=== PATIENT | female | born 1960 ===

== ENCOUNTER 2023-06-03 11:25 | Emergency (ER) | payer OTHER ==
[2023-06-03 12:45] VITALS: TEMP 98
--- NOTE | 2023-06-03 12:47 | ED ---
URI HPI - General Chief Complaint: Upper Respiratory Infection Stated Complaint: Chest Congestion Time Seen by Provider: 06/03/23 12:06 Source: patient, RN notes reviewed Mode of arrival: ambulatory Limitations: language barrier (Caser used) - History of Present Illness Initial Comments: 62-year-old female presents emergency Department with significant other for erosion of cough and cold like symptoms patient has been sick for several days. Patient states that she feels like she may have:. Patient states she had pneumonia in the past. Patient denies any sick contacts but she reports fevers chills bodyaches productive cough. - Related Data Allergies Allergy/AdvReac Type Severity Reaction Status Date / Time No Known Allergies Allergy Verified 06/03/23 11:55 Review of Systems ROS Statement: Those systems with pertinent positive or pertinent negative responses have been documented in the HPI. ROS Other: All systems not noted in ROS Statement are negative. Past Medical History Additional Past Medical History / Comment(s): STD History of Any Multi-Drug Resistant Organisms: None Reported Past Surgical History: No Surgical Hx Reported, Orthopedic Surgery, Uterine Ablation Additional Past Surgical History / Comment(s): throat surgery. Past Psychological History: No Psychological Hx Reported Smoking Status: Never smoker Past Alcohol Use History: None Reported Past Drug Use History: None Reported General Exam Limitations: no limitations General appearance: alert, in no apparent distress Head exam: Present: atraumatic, normocephalic, normal inspection Eye exam: Present: normal appearance, PERRL, EOMI. Absent: scleral icterus, conjunctival injection, periorbital swelling ENT exam: Present: normal exam, normal oropharynx, mucous membranes moist Neck exam: Present: normal inspection, full ROM. Absent: tenderness, meningismus, lymphadenopathy Respiratory exam: Present: normal lung sounds bilaterally. Absent: respiratory distress, wheezes, rales, rhonchi, stridor Cardiovascular Exam: Present: regular rate, normal rhythm, normal heart sounds. Absent: systolic murmur, diastolic murmur, rubs, gallop, clicks Neurological exam: Present: alert Course Vital Signs 06/03/23 11:52 Temperature 98 F Pulse Rate 95 Respiratory 18 Rate Blood Pressure 131/77 O2 Sat by Pulse 98 Oximetry Medical Decision Making - Medical Decision Making Was pt. sent in by a medical professional or institution (, PA, COPPERSMITH HELPER, urgent care, hospital, or [facility]...) When possible be specific @ -No Did you speak to anyone other than the patient for history (EMS, parent, family, police, friend...)? What history was obtained from this source @ -No Did you review nursing and triage notes (agree or disagree)? Why? @ -I reviewed and agree with nursing and triage notes Were old charts reviewed (outside hosp., previous admission, EMS record, old EKG, old radiological studies, urgent care reports/EKG's, [facility] records)? Report findings @ -No old charts were reviewed Differential Diagnosis (chest pain, altered mental status, abdominal pain women, abdominal pain men, vaginal bleeding, weakness, fever, dyspnea, syncope, headache, dizziness, GI bleed, back pain, seizure, CVA, palpatations, mental health, musculoskeletal)? @ -[COVID 19, RSV, influenza, pneumonia, acute bronchitis, URI, this list is not all inclusive EKG interpreted by me (3pts min.). @ -[None X-rays interpreted by me (1pt min.). @ -Chest x-ray shows no acute cardio pulmonary process CT interpreted by me (1pt min.). @ -None done U/S interpreted by me (1pt. min.). @ -None done What testing was considered but not performed or refused? (CT, X-rays, U/S, labs)? Why? @ -None What meds were considered but not given or refused? Why? @ -None Did you discuss the management of the patient with other professionals (professionals i.e. , PA, COPPERSMITH HELPER, lab, RT, psych nurse, socially responsible investment adviser, work station support specialist, teacher, risk control officer, telehealth case manager)? Give summary @ -No Was smoking cessation discussed for >3mins.? @ -No Was critical care preformed (if so, how long)? @ -No Were there social determinants of health that impacted care today? How? (Ho melessness, low income, unemployed, alcoholism, drug addiction, transportation, low edu. Level, literacy, decrease access to med. care, senior living, rehab)? @ -No Was there de-escalation of care discussed even if they declined (Discuss DNR or withdrawal of care, Hospice)? DNR status @ -No What co-morbidities impacted this encounter? (DM, HTN, Smoking, COPD, CAD, Cancer, CVA, ARF, Chemo, Hep., AIDS, mental health diagnosis, sleep apnea, morbid obesity)? @ -None Was patient admitted / discharged? Hospital course, mention meds given and route, prescriptions, significant lab abnormalities, going to OR and other pertinent info. @ -Discharge patient is positive for RSV patient is currently stable be discharged in stable condition. Undiagnosed new problem with uncertain prognosis? @ -No Drug Therapy requiring intensive monitoring for toxicity (Heparin, Nitro, Insulin, Cardizem)? @ -No Were any procedures done? @ -No Diagnosis/symptom? @ -RSV Acute, or Chronic, or Acute on Chronic? @ -Acute Uncomplicated (without systemic symptoms) or Complicated (systemic symptoms)? @ -[Uncomplicated Side effects of treatment? @ -No Exacerbation, Progression, or Severe Exacerbation? @ -No Poses a threat to life or bodily function? How? (Chest pain, [place], [place], pneumonia, PE, COPD, DKA, ARF, appy, cholecystitis, CVA, Diverticulitis, Homicidal, Suicidal, threat to staff... and all critical care pts) @ -No - Lab Data Lab Results 06/03/23 Range/Units 12:18 Influenza Type A (PCR) Not Detected (Not Detectd) Influenza Type B (PCR) Not Detected (Not Detectd) RSV (PCR) Detected A (Not Detectd) SARS-CoV-2 (PCR) Not Detected (Not Detectd) Disposition Clinical Impression: RSV infection Disposition: HOME SELF-CARE Condition: Stable Instructions (If sedation given, give patient instructions): Respiratory Syncytial Virus (ED) Additional Instructions: Please return to the Emergency Department if symptoms worsen or any other concerns. Is patient prescribed a controlled substance at d/c from ED?: No Referrals: Nonstaff,Physician [Primary Care Provider] - 1-2 days Time of Disposition: 13:58
--- NOTE | 2023-06-03 13:44 | XR ---
EXAMINATION TYPE: XR chest 2V DATE OF EXAM: 06/03/2023 1:24 PM CLINICAL INDICATION:Female, 62 years old with history of fever/cough COMPARISON: Chest radiographs from 06/03/2023 TECHNIQUE: XR chest 2V Frontal and lateral views of the chest. FINDINGS: Lungs/Pleura: There is no evidence of pleural effusion, focal consolidation, or pneumothorax. Pulmonary vascularity: Unremarkable. Heart/mediastinum: Cardiomediastinal silhouette is unremarkable. Musculoskeletal: No acute osseous pathology. Other findings: None IMPRESSION: No acute cardiopulmonary disease/process.
[2023-06-03 14:47] VITALS: BP 128/74; PULSE 88; RESP 20
== END 2023-06-03 14:32 | disposition home or self-care (01) ==
LOC: EC 11:25
DX: R05.9 Cough, unspecified (principal); R09.89 Other specified symptoms and signs involving the circulatory and respiratory systems; B97.4 Respiratory syncytial virus as the cause of diseases classified elsewhere; Z20.822 Contact with and (suspected) exposure to COVID-19
CPT/HCPCS: 71046; 87636; 99283

== ENCOUNTER 2025-01-05 10:15 | Observation (INO) | payer OTHER ==
[2025-01-05 11:02] LABS: Basophils # (A) 0.01 10*3/uL (0.00-0.10); Basophils % (A) 0.2 %; Eosinophils # (A) 0.01 10*3/uL (0.04-0.35); Eosinophils % (A) 0.2 %; HCT 36.9 % (37.2-46.3); HGB 13.0 g/dL (12.0-15.0); Lymphocytes # (A) 0.95 10*3/uL (0.90-5.00); Lymphocytes % (A) 23.5 %; MCH 30.3 pg (27.0-32.0); MCHC 35.2 g/dL (32.0-37.0); MCV 86.0 fL (80.0-97.0); Monocytes # (A) 0.25 10*3/uL (0.20-1.00); Monocytes % (A) 6.2 %; Neutrophils # (A) 2.82 10*3/uL (1.80-7.70); Neutrophils % (A) 69.7 %; Platelet Count 293 10*3/uL (140-440); RBC 4.29 10*6/uL (4.10-5.20); RDW 11.9 % (11.5-14.5); WBC 4.05 10*3/uL (4.50-10.00)
[2025-01-05] MEDS: LACTATED RINGERS 1,000 ML IV ONE (11:04)
[2025-01-05] MEDS: KETOROLAC 15 MG/ML 1 ML VIAL IVP STA (11:06)
[2025-01-05] MEDS: ONDANSETRON 4 MG/2 ML VIAL IVP STA (11:09)
[2025-01-05] MEDS: MORPHINE SULFATE 4 MG/ML SYRINGE IVP STA (11:11)
[2025-01-05 11:12] LABS: ALT 23 U/L (4-34); AST 26 U/L (14-36); African American GFR (CKD) >90 (>60 ml/min/1.73 sqM); Albumin 4.7 g/dL (3.5-5.0); Alkaline Phosphatase 114 U/L (38-126); Amylase 55 U/L (30-110); Anion Gap 12 mmol/L; Blood Urea Nitrogen 13 mg/dL (7-17); Calcium 9.7 mg/dL (8.4-10.2); Carbon Dioxide 25 mmol/L (22-30); Chloride 94 mmol/L (98-107); Glucose 132 mg/dL (74-99); Lipase 52 U/L (23-300); Non-African American GFR(CKD) >90 (>60 ml/min/1.73 sqM); Potassium 3.7 mmol/L (3.5-5.1); Sodium 131 mmol/L (137-145); Total Protein 7.8 g/dL (6.3-8.2)
[2025-01-05] MEDS: PANTOPRAZOLE 40 MG/10 ML VIAL IVP STA (11:14)
[2025-01-05 11:19] LABS: INR 1.1 (<1.2); Partial Thromboplastin Time 23.6 sec (22.0-30.0); Prothrombin Time 11.9 sec (10.0-12.5)
[2025-01-05 12:17] LABS: Bilirubin,Urine Negative (Negative); Blood,Urine Small (Negative); Color,Urine Colorless; Glucose,Urine (UA) Negative (Negative); Ketones,Urine 1+ (Negative); Leukocyte Esterase,Urine Negative (Negative); Nitrite,Urine Negative (Negative); PH, Urine 7.0 (5.0-8.0); Protein,Urine Negative (Negative); RBC,Urine 1 /hpf (0-5); Specific Gravity,Urine 1.013 (1.001-1.035); Urobilinogen,Urine <2.0 mg/dL (<2.0); WBC,Urine <1 /hpf (0-5)
--- NOTE | 2025-01-05 12:17 | CT ---
EXAMINATION TYPE: CT abdomen pelvis w con CT DLP: 722.7 mGycm, Automated exposure control for dose reduction was used. DATE OF EXAM: 01/05/2025 12:05 PM COMPARISON: None CLINICAL INDICATION:Female, 64 years old with history of abdominal pain, generalized; Generalized abd pain, nausea. TECHNIQUE: Standard CT of the abdomen and pelvis following the administration of 100 cc of Isovue 3 00 IV contrast material. Coronal and sagittal reformats were performed. FINDINGS: LOWER CHEST: Posterior minimal dependent subsegmental atelectasis is noted. Partial visualization of bilateral breast prosthesis. Mild cardiomegaly. ABDOMEN LIVER: Unremarkable GALLBLADDER AND BILE DUCTS: No biliary ductal dilatation. Cholelithiasis with a 2.7 cm calculus sugge sted. Gallbladder wall edema measuring up to 4 mm. PANCREAS: Unremarkable. SPLEEN: Unremarkable. ADRENAL GLANDS: Unremarkable. KIDNEYS AND URETERS: No evidence of hydronephrosis. No left renal calculi. The kidneys enhance symmet rically. Nonobstructing right renal 8mm calculus. Contrast is demonstrated within both collecting sys tems and proximal ureters on the delayed phase. PELVIS BLADDER: Unremarkable REPRODUCTIVE: The uterus is surgically absent. ABDOMEN & PELVIS STOMACH AND BOWEL: Small hiatal hernia, duodenum is unremarkable. Distal colonic diverticulosis witho ut evidence for acute diverticulitis. No focal bowel wall thickening or surrounding inflammatory watson ges. No evidence of bowel obstruction. The appendix is not identified however no significant inflamma tory changes within the right lower quadrant. PERITONEUM: No evidence of pneumoperitoneum or free fluid. VASCULATURE: Mild atherosclerotic calcifications are present throughout the abdominal aorta and its b ranches. No evidence of aortic aneurysm. Pelvic phleboliths. MUSCULOSKELETAL: No acute osseous abnormalities LYMPH NODES: No evidence for lymphadenopathy. SOFT TISSUE/ABDOMINAL WALL: Unremarkable IMPRESSION: 1. Cholelithiasis with gallbladder wall edema. Recommend further evaluation with ultrasound to evalu ate for acute cholecystitis. 2. Nonobstructing right renal calculus. 3. Colonic diverticulosis without evidence for acute diverticulitis. [facility], , 01/05/2025 12:15 PM
--- NOTE | 2025-01-05 12:58 | ED ---
General Adult HPI - General Chief complaint: Abdominal Pain Stated complaint: Abd pain Time Seen by Provider: 01/05/25 10:35 Source: patient, family, RN notes reviewed, old records reviewed Mode of arrival: ambulatory Limitations: no limitations - History of Present Illness Initial comments: 64-year-old female with past medical history remarkable for hysterectomy and appendectomy presents emergency department complaining of 4 to 5 days of wo rsening abdominal pain. She describes it is somewhat generalized but does point towards her epigastric region as well as right upper quadrant. Patient is a Swedish speaker and does not speak good Amharic. Zinc Chloride Operator phone used for evaluation. Initial nylon machine operator was Vivek, case #[id number]. Patient denies any chest pain or shortness of breath. Denies any fevers. Endorses nonbilious nonbloody emesis as well as some diarrhea. Denies any urinary complaints. Does have a history of IBS as well as colon polyps status post removal however it has been some years since she has had belly pain like this. She is uncertain what is causing the pain which is why she presents for further evaluation. - Related Data Allergies Allergy/AdvReac Type Severity Reaction Status Date / Time No Known Allergies Allergy Verified 06/03/23 11:55 Review of Systems ROS Statement: Those systems with pertinent positive or pertinent negative responses have been documented in the HPI. Review of Systems: CONST: Denies fever EYES: Denies blurry vision ENT: Denies nasal congestion C/V: Denies Chest pain RESP: Denies shortness of breath GI: Endorses abdominal pain : Denies dysuria SKIN: Denies rash. MSK: Denies joint pain. NEURO: Denies headache ROS Other: All systems not noted in ROS Statement are negative. Past Medical History Additional Past Medical History / Comment(s): STD History of Any Multi-Drug Resistant Organisms: None Reported Past Surgical History: No Surgical Hx Reported, Orthopedic Surgery, Uterine Ablation Additional Past Surgical History / Comment(s): throat surgery. Past Psychological History: No Psychological Hx Reported Smoking Status: Never smoker Past Alcohol Use History: None Reported Past Drug Use History: None Reported General Exam - General Exam Comments Initial Comments: General: Appears in mild to moderate distress secondary to abdominal pain. HEAD: Normal with no signs of head trauma. EYES: PERRLA, EOMI, conjunctiva normal, no discharge. ENT: Hearing grossly intact, normal oropharynx. RESPIRATORY: Clear breath sounds bilaterally. No wheezes, rales, or rhonchi. C/V: Regular rate and rhythm. S1 and S2 auscultated, no edema, peripheral pulses 2+ and intact throughout ABD: Abdomen soft, nondistended. Tender palpation epigastric region and right upper quadrant. Mild guarding. No rebound tenderness. No peritoneal signs. EXT: Normal range of motion, no obvious deformity SKIN: No rashes or lesions observed on exposed skin. NEURO: Alert and oriented x 4. Limitations: no limitations Course Vital Signs 01/05/25 01/05/25 10:20 12:53 Temperature 97.4 F L Pulse Rate 60 52 L Respiratory 20 18 Rate Blood Pressure 143/80 135/73 O2 Sat by Pulse 99 98 Oximetry Medical Decision Making - Medical Decision Making Was pt. sent in by a medical professional or institution (, PA, CAN TENDER, urgent care, hospital, or fpc...) When possible be specific @ -No Did you speak to anyone other than the patient for history (EMS, parent, family, police, friend...)? What history was obtained from this source @ -Spoke with interpreters who translated for the patient. Initial alliance director was Vivek at [id number] for case number. Second alliance director was Rob at [id number] for alliance director number. Did you review nursing and triage notes (agree or disagree)? Why? @ -I reviewed and agree with nursing and triage notes Were old charts reviewed (outside hosp., previous admission, EMS record, old EKG, old radiological studies, urgent care reports/EKG's, [facility]pc records)? Report findings @ -No old charts were reviewed Differential Diagnosis (chest pain, altered mental status, abdominal pain women, abdominal pain men, vaginal bleeding, weakness, fever, dyspnea, syncope, headache, dizziness, GI bleed, back pain, seizure, CVA, palpatations, mental health, musculoskeletal)? @ -Differential Abdominal Pain Women: Appendicitis, Cholecystitis, diverticulosis, ischemic bowel, pancreatitis, hepatitis, UTI, gastroenteritis, AAA, incarcerated hernia, bowel obstruction, constipation, inflammatory bowel, hepatitis, peptic ulcer disease, splenic infarction, perforated viscus, vulvitis, ovarian torsion, PID, kidney stone, placenta abruption, this is not meant to be an all-inclusive list EKG interpreted by me (3pts min.). @ -As above X-rays interpreted by me (1pt min.). @ -None done CT interpreted by me (1pt min.). @ -CT abdomen pelvis shows findings concerning for cholecystitis. Recommend ultrasound of the gallbladder. Cholelithiasis is present. U/S interpreted by me (1pt. min.). @ -Gallbladder ultrasound shows equivocal findings for acute cholecystitis with a cholelithiasis, gallbladder wall thickening, pericholecystic fluid. What testing was considered but not performed or refused? (CT, X-rays, U/S, labs)? Why? @ -None What meds were considered but not given or refused? Why? @ -None Did you discuss the management of the patient with other professionals (professionals i.e. Dr., PA, CAN TENDER, lab, RT, psych nurse, addiction social worker, accounts receivable assistant, teacher, commercial account officer, therapeutic case manager)? Give summary @ -Discussed with the admitting surgeon, Dr. Sexton who accepted the patient. He requested I change antibiotic from Levaquin to Rocephin. Was smoking cessation discussed for >3mins.? @ -No Was critical care preformed (if so, how long)? @ -No Were there social determinants of health that impacted care today? How? (Homelessness, low income, unemployed, alcoholism, drug addiction, transportation, low edu. Level, literacy, decrease access to med. care, skilled nursing, rehab)? @ -No Was there de-escalation of care discussed even if they declined (Discuss DNR or withdrawal of care, Hospice)? DNR status @ -No What co-morbidities impacted this encounter? (DM, HTN, Smoking, COPD, CAD, Cancer, CVA, ARF, Chemo, Hep., AIDS, mental health diagnosis, sleep apnea, morbid obesity)? @ -IBS Was patient admitted / discharged? Hospital course, mention meds given and route, prescriptions, significant lab abnormalities, going to OR and other pertinent info. @ -Patient presents emergency department for abdominal pain. She is a Swedish- speaking only. We did use alliance director phone for interpretation. Initial alliance director was Vivek Bliss #[id number]. Vitals are within acceptable limits. Will obtain abdominal laboratory studies as well as CT abdomen/pelvis. Patient administered IV fluids, analgesic medications, Protonix, Zofran. Screening EKG shows no signs of acute ischemia. Laboratory studies are all within acceptable limits. CT shows findings concerning for possible cholecystitis with cholelithiasis. Recommended gallbladder ultrasound. Gallbladder ultrasound obtained and shows equivocal findings for acute cholecystitis. Vat House Supervisor Rob used at this time, case #[id number]. I discussed results with the patient. Expressed my concern that she has cholecystitis and require surgical evaluation and likely surgery with IV antibiotics. Patient expressed understanding was in agreement with plan. She did asked to speak with case management over concern for insurance and cost. This will be arranged. I did notify Neha our therapeutic case manager in the ER who will speak with the patient. Patient otherwise was in agreement plan for admission. Patient made NPO. I spoke with Dr. Sexton, the on-call surgeon who accepted the admission. I initially did start the patient on Flagyl and Levaquin however prior to patient receiving any IV antibiotics Dr. Sexton asked that I change the Levaquin to Rocephin which was completed. Patient made NPO. Will continue with IV fluids. Undiagnosed new problem with uncertain prognosis? @ -No Drug Therapy requiring intensive monitoring for toxicity (Heparin, Nitro, Insulin, Cardizem)? @ -No Were any procedures done? @ -No Diagnosis/symptom? @ -Cholecystitis Acute, or Chronic, or Acute on Chronic? @ -Acute Uncomplicated (without systemic symptoms) or Complicated (systemic symptoms)? @ -Complicated Side effects of treatment? @ -No Exacerbation, Progression, or Severe Exacerbation? @ -No Poses a threat to life or bodily function? How? (Chest pain, [place], [place], pneumonia, PE, COPD, DKA, ARF, appy, cholecystitis, CVA, Diverticulitis, Homicidal, Suicidal, threat to staff... and all critical care pts) @ -yes - Lab Data Result diagrams: 01/05/25 10:56 01/05/25 10:56 Lab Results 01/05/25 01/05/25 01/05/25 Range/Units 10:56 10:56 10:56 WBC 4.05 L (4.50-10.00) 10*3/uL RBC 4.29 (4.10-5.20) 10*6/uL Hgb 13.0 (12.0-15.0) g/dL Hct 36.9 L (37.2-46.3) % MCV 86.0 (80.0-97.0) fL MCH 30.3 (27.0-32.0) pg MCHC 35.2 (32.0-37.0) g/dL Plt Count 293 (140-440) 10*3/uL MPV 9.1 L (9.5-12.2) fL Immature Gran % (Auto) 0.2 % Neutrophils % 69.7 % Lymphocytes % 23.5 % Monocytes % 6.2 % Eosinophils % 0.2 % Basophils % 0.2 % Immature Gran # 0.01 (0.00-0.04) 10*3/uL Neutrophils # 2.82 (1.80-7.70) 10*3/uL Lymphocytes # 0.95 (0.90-5.00) 10*3/uL Monocytes # 0.25 (0.20-1.00) 10*3/uL Eosinophils # 0.01 L (0.04-0.35) 10*3/uL Basophils # 0.01 (0.00-0.10) 10*3/uL PT 11.9 (10.0-12.5) sec INR 1.1 (<1.2) APTT 23.6 (22.0-30.0) sec Sodium 131 L (137-145) mmol/L Potassium 3.7 (3.5-5.1) mmol/L Chloride 94 L (98-107) mmol/L Carbon Dioxide 25 (22-30) mmol/L Anion Gap 12 mmol/L BUN 13 (7-17) mg/dL Creatinine 0.40 L (0.52-1.04) mg/dL Est GFR (CKD-EPI)AfAm >90 (>60 ml/min/1.73 sqM) Est GFR (CKD-EPI)NonAf >90 (>60 ml/min/1.73 sqM) Glucose 132 H (74-99) mg/dL Plasma Lactic Acid Dusty (0.7-2.0) mmol/L Calcium 9.7 (8.4-10.2) mg/dL Total Bilirubin 1.4 H (0.2-1.3) mg/dL AST 26 (14-36) U/L ALT 23 (4-34) U/L Alkaline Phosphatase 114 (38-126) U/L Total Protein 7.8 (6.3-8.2) g/dL Albumin 4.7 (3.5-5.0) g/dL Amylase 55 (30-110) U/L Lipase 52 (23-300) U/L Urine Color Urine Appearance (Clear) Urine pH (5.0-8.0) Ur Specific Hughes (1.001-1.035) Urine Protein (Negative) Urine Glucose (UA) (Negative) Urine Ketones (Negative) Urine Blood (Negative) Urine Nitrite (Negative) Urine Bilirubin (Negative) Urine Urobilinogen (<2.0) mg/dL Ur Leukocyte Esterase (Negative) Urine RBC (0-5) /hpf Urine WBC (0-5) /hpf 01/05/25 01/05/25 Range/Units 10:56 12:05 WBC (4.50-10.00) 10*3/uL RBC (4.10-5.20) 10*6/uL Hgb (12.0-15.0) g/dL Hct (37.2-46.3) % MCV (80.0-97.0) fL MCH (27.0-32.0) pg MCHC (32.0-37.0) g/dL Plt Count (140-440) 10*3/uL MPV (9.5-12.2) fL Immature Gran % (Auto) % Neutrophils % % Lymphocytes % % Monocytes % % Eosinophils % % Basophils % % Immature Gran # (0.00-0.04) 10*3/uL Neutrophils # (1.80-7.70) 10*3/uL Lymphocytes # (0.90-5.00) 10*3/uL Monocytes # (0.20-1.00) 10*3/uL Eosinophils # (0.04-0.35) 10*3/uL Basophils # (0.00-0.10) 10*3/uL PT (10.0-12.5) sec INR (<1.2) APTT (22.0-30.0) sec Sodium (137-145) mmol/L Potassium (3.5-5.1) mmol/L Chloride (98-107) mmol/L Carbon Dioxide (22-30) mmol/L Anion Gap mmol/L BUN (7-17) mg/dL Creatinine (0.52-1.04) mg/dL Est GFR (CKD-EPI)AfAm (>60 ml/min/1.73 sqM) Est GFR (CKD-EPI)NonAf (>60 ml/min/1.73 sqM) Glucose (74-99) mg/dL Plasma Lactic Acid Dusty 1.2 (0.7-2.0) mmol/L Calcium (8.4-10.2) mg/dL Total Bilirubin (0.2-1.3) mg/dL AST (14-36) U/L ALT (4-34) U/L Alkaline Phosphatase (38-126) U/L Total Protein (6.3-8.2) g/dL Albumin (3.5-5.0) g/dL Amylase (30-110) U/L Lipase (23-300) U/L Urine Color Colorless Urine Appearance Clear (Clear) Urine pH 7.0 (5.0-8.0) Ur Specific Hughes 1.013 (1.001-1.035) Urine Protein Negative (Negative) Urine Glucose (UA) Negative (Negative) Urine Ketones 1+ H (Negative) Urine Blood Small H (Negative) Urine Nitrite Negative (Negative) Urine Bilirubin Negative (Negative) Urine Urobilinogen <2.0 (<2.0) mg/dL Ur Leukocyte Esterase Negative (Negative) Urine RBC 1 (0-5) /hpf Urine WBC <1 (0-5) /hpf - EKG Data -: EKG Interpreted by Me EKG Comments: 12-lead Electrocardiogram Interpretation Note EKG was reviewed and interpreted by myself. 12-lead ECG performed at 1103 is interpreted by me as revealing normal sinus rhythm at a rate of 53 beats per minute. Wallace is normal. KS interval is 170 ms, QRS durations 116 ms, QTc is 479 ms.. There were no ST or T wave abnormalities to suggest myocardial ischem ia or injury. R wave progression across the precordium was satisfactory. By my interpretation this EKG is non-diagnostic for acute ischemia. Disposition Clinical Impression: Cholecystitis Disposition: ADMITTED IP TO THIS HOSP Condition: Stable Referrals: None,Stated [Primary Care Provider] - 1-2 days Time of Disposition: 13:39
--- NOTE | 2025-01-05 13:00 | US ---
EXAMINATION TYPE: US gallbladder DATE OF EXAM: 01/05/2025 COMPARISON: CT abdomen pelvis 01/05/2025 CLINICAL INDICATION: Female, 64 years old with history of evaluate for cholecystitis; Gallstones foll ow up to ct scan. TECHNIQUE: Grayscale and color Doppler imaging of the right upper quadrant was performed. FINDINGS: EXAM MEASUREMENTS: Liver Length: 14.8 cm Gallbladder Wall: .4 cm CBD: .8 cm Right Kidney: 10 x 4.1 x 4.9 cm SEWER MAINTENANCE SUPERVISOR NOTES: Pancreas: Obscured by bowel gas Liver: wnl Gallbladder: Large 3.2 cm stone seen. Thickened wall will pericholecystic fluid visualized. Evidence for sonographic Stevenson's sign: no CBD: Dilated Right Kidney: 8 mm stone seen mid pole. Pancreas is obscured by overlying bowel gas. The liver is unremarkable without focal lesion. Large st one seen in the gallbladder measuring 3.2 cm. There is wall thickening with pericholecystic fluid justo ntified. Negative sonographic Stevenson's sign. Nonobstructing right renal calculus. No hydronephrosis o r solid renal mass. Common bile duct is borderline dilated. IMPRESSION: 1. Cholelithiasis with mild gallbladder wall thickening and pericholecystic fluid however negative s onographic Stevenson sign. Findings are equivocal for acute cholecystitis. Consider further evaluation w ith nuclear medicine HIDA scan. 2. Borderline dilated common bile duct. Correlation with biliary labs is recommended. 3. Nonobstructing right renal calculus. [facility], , 01/05/2025 12:58 PM
[2025-01-05] MEDS ORDERED: NALOXONE 0.4 MG/ML 1 ML VIAL IV PRN (13:37)
[2025-01-05] MEDS ORDERED: LEVOFLOXACIN 500MG-D5W PMX 500 MG in DEXTROSE/WATER 1 100ML.BAG IVPB SCH (13:45)
[2025-01-05] MEDS ORDERED: metroNIDAZOLE-NS PMX 500 MG in SALINE 1 100ML.BAG IVPB SCH (14:00)
[2025-01-05] MEDS: LACTATED RINGERS 500 ML IV ONE (14:01)
--- NOTE | 2025-01-05 14:44 | P.GSHP ---
History of Present Illness Patient is a 64 yo female w/ several days of abdominal pain, nausea, vomiting, fevers, chills. Patient states this is the first time this has ever happened, patient's last colonoscopy was several years ago. Currently has improved ab dominal pain, but still complains of nausea. Denies sick contacts. Patient complains of abdominal in right upper quadrant radiating to back and is painful w/ deep inspiration. Denies weight loss, history of jaundice, diarrhea. - Constitutional Constitutional: Reports as per HPI Past Medical History Additional Past Medical History / Comment(s): STD History of Any Multi-Drug Resistant Organisms: None Reported Past Surgical History: No Surgical Hx Reported, Orthopedic Surgery, Uterine Ablation Additional Past Surgical History / Comment(s): throat surgery. Past Psychological History: No Psychological Hx Reported Smoking Status: Never smoker Past Alcohol Use History: None Reported Past Drug Use History: None Reported Medications and Allergies Allergies Allergy/AdvReac Type Severity Reaction Status Date / Time No Known Allergies Allergy Verified 06/03/23 11:55 Surgical - Exam Osteopathic Statement: *. No significant issues noted on an osteopathic structural exam other than those noted in the History and Physical/Consult. Vital Signs Temp Pulse Resp BP Pulse Ox 97.4 F L 60 20 143/80 99 01/05/25 10:20 01/05/25 10:20 01/05/25 10:20 01/05/25 10:20 01/05/25 10:20 gen: nad cv: rrr pul: non labored breathing abd: soft, tender to palption in right upper quadrant, +lugo sign, no guarding or rebound tenderness. ext: no edema noted. Results - Labs 01/05/25 10:56 01/05/25 10:56 Abnormal Lab Results - Last 24 Hours (Table) 01/05/25 01/05/25 01/05/25 Range/Units 10:56 10:56 12:05 WBC 4.05 L (4.50-10.00) 10*3/uL Hct 36.9 L (37.2-46.3) % MPV 9.1 L (9.5-12.2) fL Eosinophils # 0.01 L (0.04-0.35) 10*3/uL Sodium 131 L (137-145) mmol/L Chloride 94 L (98-107) mmol/L Creatinine 0.40 L (0.52-1.04) mg/dL Glucose 132 H (74-99) mg/dL Total Bilirubin 1.4 H (0.2-1.3) mg/dL Urine Ketones 1+ H (Negative) Urine Blood Small H (Negative) Diabetes panel 01/05/25 Range/Units 10:56 Sodium 131 L (137-145) mmol/L Potassium 3.7 (3.5-5.1) mmol/L Chloride 94 L (98-107) mmol/L Carbon Dioxide 25 (22-30) mmol/L BUN 13 (7-17) mg/dL Creatinine 0.40 L (0.52-1.04) mg/dL Glucose 132 H (74-99) mg/dL Calcium 9.7 (8.4-10.2) mg/dL AST 26 (14-36) U/L ALT 23 (4-34) U/L Alkaline Phosphatase 114 (38-126) U/L Total Protein 7.8 (6.3-8.2) g/dL Albumin 4.7 (3.5-5.0) g/dL Calcium panel 01/05/25 Range/Units 10:56 Calcium 9.7 (8.4-10.2) mg/dL Albumin 4.7 (3.5-5.0) g/dL Pituitary panel 01/05/25 Range/Units 10:56 Sodium 131 L (137-145) mmol/L Potassium 3.7 (3.5-5.1) mmol/L Chloride 94 L (98-107) mmol/L Carbon Dioxide 25 (22-30) mmol/L BUN 13 (7-17) mg/dL Creatinine 0.40 L (0.52-1.04) mg/dL Glucose 132 H (74-99) mg/dL Calcium 9.7 (8.4-10.2) mg/dL Adrenal panel 01/05/25 Range/Units 10:56 Sodium 131 L (137-145) mmol/L Potassium 3.7 (3.5-5.1) mmol/L Chloride 94 L (98-107) mmol/L Carbon Dioxide 25 (22-30) mmol/L BUN 13 (7-17) mg/dL Creatinine 0.40 L (0.52-1.04) mg/dL Glucose 132 H (74-99) mg/dL Calcium 9.7 (8.4-10.2) mg/dL Total Bilirubin 1.4 H (0.2-1.3) mg/dL AST 26 (14-36) U/L ALT 23 (4-34) U/L Alkaline Phosphatase 114 (38-126) U/L Total Protein 7.8 (6.3-8.2) g/dL Albumin 4.7 (3.5-5.0) g/dL Assessment and Plan Assessment: 64 yo female w/ acute cholecystitis -rocephin/glagyl -iv hydration -npo -pain management -or tomorrow Time with Patient: Greater than 30
[2025-01-05] MEDS: LACTATED RINGERS 1,000 ML IV SCH (15:37)
[2025-01-05] MEDS: metroNIDAZOLE-NS PMX 500 MG in SALINE 1 100ML.BAG IVPB SCH (16:15)
[2025-01-06] MEDS: PANTOPRAZOLE 40 MG/10 ML VIAL IV SCH (07:58)
[2025-01-06 09:08] LABS: ALT 17 U/L (8-44); AST 16 U/L (13-35); Albumin 3.8 g/dL (3.8-4.9); Albumin/Globulin Ratio 2.11 Ratio (1.60-3.17); Alkaline Phosphatase 82 U/L (41-126); Anion Gap 8.70 mmol/L (4.00-12.00); BUN/Creat Ratio 20.33 Ratio (12.00-20.00); Blood Urea Nitrogen 12.2 mg/dL (9.0-27.0); Calcium 8.7 mg/dL (8.7-10.3); Carbon Dioxide 26.3 mmol/L (21.6-31.8); Chloride 105 mmol/L (96-109); Globulin 1.8 g/dL (1.6-3.3); Glucose 98 mg/dL (70-110); Potassium 3.8 mmol/L (3.5-5.5); Sodium 140 mmol/L (135-145); Total Protein 5.6 g/dL (6.2-8.2)
[2025-01-06 09:11] LABS: Basophils # (A) 0.01 X 10*3/uL (0.00-0.10); Basophils % (A) 0.3 %; Eosinophils # (A) 0.05 X 10*3/uL (0.04-0.35); Eosinophils % (A) 1.3 %; HCT 35.9 % (37.2-46.3); HGB 11.7 g/dL (12.0-15.0); Immature Grans, Automated 0.30 %; Lymphocytes # (A) 1.30 X 10*3/uL (0.90-5.00); Lymphocytes % (A) 33.9 %; MCH 29.3 pg (27.0-32.0); MCHC 32.6 g/dL (32.0-37.0); MCV 90.0 FL (80.0-97.0); Monocytes # (A) 0.41 X 10*3/uL (0.20-1.00); Monocytes % (A) 10.7 %; NRBC Per 100 WBC 0 X 10*3/uL (0.00-0.01); Neutrophils # (A) 2.05 X 10*3/uL (1.80-7.70); Neutrophils % (A) 53.5 %; Platelet Count 270 X 10*3/uL (140-440); RBC 3.99 X 10*6/uL (4.10-5.20); RDW 12.5 % (11.5-14.5); WBC 3.83 X 10*3/uL (4.50-10.00)
[2025-01-06] MEDS ORDERED: HEPARIN SODIUM,PORCINE 5,000 UNIT/ML 1 ML VIAL ONE (10:51)
[2025-01-06] MEDS ORDERED: NEOSTIGMINE 1 MG/ML 10 ML VIAL ONE (10:51)
[2025-01-06] MEDS ORDERED: ePHEDrine 50 MG/ML 1 ML VIAL ONE (10:51)
[2025-01-06] MEDS ORDERED: fentaNYL (PF) 50 MCG/ML 2 ML AMP ONE (10:51)
[2025-01-06] MEDS ORDERED: ROCURONIUM 10 MG/ML (5 ML VIAL) IV ONE (10:51)
[2025-01-06] MEDS ORDERED: GLYCOPYRROLATE 0.2 MG/ML 2 ML VIAL ONE (10:51)
[2025-01-06] MEDS ORDERED: SUCCINYLCHOLINE CHLORIDE 200 MG/10 ML VIAL IV ONE (10:51)
[2025-01-06] MEDS ORDERED: PROPOFOL 10 MG/ML 20 ML VIAL IV ONE (10:51)
[2025-01-06] MEDS ORDERED: PHENYLEPHRINE-0.9% NACL SYG 1,000 MCG/10 ML SYRINGE ONE (10:51)
[2025-01-06] MEDS ORDERED: LIDOCAINE 1% INJ 10MG/ML (20 ML MDV) ONE (10:51)
[2025-01-06] MEDS ORDERED: MIDAZOLAM 2 MG/2 ML VIAL ONE (10:51)
[2025-01-06] MEDS: IV FLUID CONTINUATION 1,000 ML IV ONE ×2 (10:53→13:02)
[2025-01-06] MEDS: BUPIVACAINE (PF) 0.25% 30 ML VIAL SQ ONE ×3 (11:36→12:39)
[2025-01-06] MEDS: LACTATED RINGERS 1,000 ML IV ONE (11:59)
[2025-01-06] MEDS: HYDROmorphone 0.5 MG/0.5 ML SYRINGE IVP PRN (13:28)
--- NOTE | 2025-01-06 13:32 | P.OP ---
Date of Procedure: 01/06/25 Preoperative Diagnosis: Acute cholecystitis Postoperative Diagnosis: Acute cholecystitis Procedure(s) Performed: Robotic cholecystectomy Anesthesia: ABDIAS Surgeon: All Sexton Pathology: other (Gallbladder) Condition: stable Disposition: PACU Indications for Procedure: Acute cholecystitis Operative Findings: Severely edematous gallbladder with acute inflammation and adhesions Description of Procedure: The patient was brought to the operating room where she was cleaned draped in sterile fashion a timeout was performed and everyone agreed with the information were side next #15 blade was then used to make an incision in the left upper quadrant and a 5 mm Visiport was then used to gain access to the abdomen 3 more 8 mm ports were placed in the mid abdomen and right upper quadrant and a 5 mm port with then exchanged for an 8 mm port the robot was then docked the gallbladder was visualized with a number of adhesions size of chronic changes and appearing edematous the gallbladder was grasped and retracted cephalad and infundibulum was grasped laterally and I started my dissection from lateral to medial taken down the peritoneal attachments and scar tissue once this was done I started dissecting out the cystic artery and the cystic duct I obtained a critical view of safety clipped the cystic artery first and ligated using electrocautery I then turned my attention to the cystic duct doubly clipped distally 1 proximally and then ligated using electrocautery as well and then this turned to taking down the edematous gallbladder this proved to be somewhat difficult as the gallbladder was edematous and severely adhered to the liver I was able to do this in a complete fashion a hemostatic timeout was performed no bleeding was observed the gallbladder was placed in an Endo Catch bag and removed out of the left upper quadrant. This proved to be difficult as well as she had multiple large stones and the incision had to be elongated I close the left upper quadrant with a 0 Vicryl suture in a [id number] fashion I closed the ports after removing all instruments under direct visualization with a 4-0 Vicryl suture in an interrupted fashion the patient tolerated procedure well and was then transported to PACU in stable condition
--- NOTE | 2025-01-06 13:33 | P.PN ---
Progress Note - Text Surgery went well anticipate discharge tomorrow 01/07/2025
[2025-01-06] MEDS: ONDANSETRON 4 MG/2 ML VIAL IVP ONE (14:21)
[2025-01-06] MEDS: LACTATED RINGERS 1,000 ML IV SCH (14:21)
[2025-01-06] MEDS: DEXAMETHASONE SOD PHOSPHATE 4 MG/ML 1 ML VIAL IV ONE (14:21)
[2025-01-06] MEDS: MORPHINE SULFATE 4 MG/ML SYRINGE IVP PRN (15:32)
[2025-01-06] MEDS: ONDANSETRON 4 MG/2 ML VIAL IVP PRN (16:33)
[2025-01-06] MEDS: HYDROcodone/APAP 5-325MG 1 EACH TAB PO PRN (16:34)
[2025-01-06] MEDS: amLODIPine 5 MG TAB PO SCH (16:54)
[2025-01-06] MEDS: LOSARTAN 50 MG TAB PO SCH (16:54)
[2025-01-07 08:03] VITALS: BP 137/66; PULSE 76; RESP 16; TEMP 98.4
--- NOTE | 2025-01-07 10:54 | P.DS ---
Providers Date of admission: 01/05/25 13:37 Expected date of discharge: 01/07/25 Attending physician: All Sexton DO Primary care physician: Stated None Hospital Course: Discharge diagnosis 1. Acute cholecystitis Hospital course This is a 64-year-old female who presented with abdominal pain. She was found to have evidence of acute cholecystitis on imaging. Patient is status post robotic cholecystectomy. Patient tolerated surgery well. Her pain is controlled. She is tolerating diet. She is afebrile. She is having flatus. She has been up and ambulating. She is stable for discharge. Please refer to chart for further details. Physician Feather Drying Machine Operator note has been reviewed by physician. Signing provider agrees with the documented findings, assessment, and plan of care. Attestation Patient seen and examined at bedside. Status post robotic cholecystectomy. She is doing well. Pain is controlled. I did speak with her with [employer] translation. Postoperative wound care and activity instructions provided. All questions answered. Follow-up as outpatient. Shira Henry DO Patient Condition at Discharge: Stable Plan - Discharge Summary Discharge Rx Participant: No New Discharge Prescriptions: New Amoxic-Pot Clav 500-125 mg [Augmentin 500-125 mg] 1 tab PO Q12HR #10 tab HYDROcodone/APAP 5-325MG [Emerson 5-325] 1 tab PO Q6HR PRN 3 Days #12 tab PRN Reason: Pain Continue amLODIPine [Norvasc] 5 mg PO DAILY Losartan [Cozaar] 50 mg PO DAILY Discharge Medication List Losartan [Cozaar] 50 mg PO DAILY 01/05/25 [History] amLODIPine [Norvasc] 5 mg PO DAILY 01/05/25 [History] Amoxic-Pot Clav 500-125 mg [Augmentin 500-125 mg] 1 tab PO Q12HR #10 tab 01/07/25 [Rx] HYDROcodone/APAP 5-325MG [Emerson 5-325] 1 tab PO Q6HR PRN 3 Days #12 tab 01/07/25 [Rx] Follow up Appointment(s)/Referral(s): All Sexton DO [Doctor of Osteopathic Medicine] - 01/15/25 9:30 am None,Stated [Primary Care Provider] - 1-2 days Patient Instructions/Handouts: *Surgery [facility] - Laparoscopic Cholecystectomy Discharge Instructions, Low Fat Diet (ED) Activity/Diet/Wound Care/Special Instructions: No driving while taking Emerson No lifting over 10 pounds for 2 weeks You may shower. No soaking or tub baths for 2 weeks Very light activity until you are reevaluated at your follow up appointment with your surgeon Need to be off of work for 2 weeks low fat diet Discharge Disposition: HOME SELF-CARE
== END 2025-01-07 12:53 | disposition home or self-care (01) ==
LOC: EC 10:15 → 4SSUR 13:37
PROVIDERS: ADMIT Surgery; ATTEND Surgery
DX: K80.10 Calculus of gallbladder with chronic cholecystitis without obstruction (principal); K82.8 Other specified diseases of gallbladder; Z86.0100 Personal history of colon polyps, unspecified; Z90.710 Acquired absence of both cervix and uterus; Z90.49 Acquired absence of other specified parts of digestive tract
CPT/HCPCS: 47562; S2900; 36415; 74177; 76705; 80053; 81001; 82150; 83605; 83690; 85025; 85610; 85730; 87040; 88304; 93005; 96374; 96375; 96376; 99285